=== PATIENT | male | born 1955 | race Caucasian/White ===

== ENCOUNTER → 2016-06-17 | Outpatient (CLI) | payer BC | LOC: MW.CHUR 07:36 | PROVIDERS: ATTEND Urology | DX: R97.20 Elevated prostate specific antigen [PSA] (principal); F52.21 Male erectile disorder | CPT/HCPCS: 36415; 84153 ==

== ENCOUNTER 2019-06-29 09:24 | Day surgery (SDC) | payer BC ==
[~2019-06-29 09:24] MED LIST: Lactated Ringers 1,000 ML IV SCH; Sodium Chloride 0.9% 10 ML SDV IV PRN; Sodium Chloride 0.9% 10 ML Syringe FLUSH PRN; Sodium Chloride 0.9% 2.5 ML Syringe FLUSH PRN
--- NOTE | 2019-06-29 09:59 | PCM.PREANE ---
Preanesthetic Assessment - Anesthesia/Transfusion/Family Hx Anesthesia History: Prior Anesthesia Without Reaction Family History of Anesthesia Reaction: No Transfusion History: No Prior Transfusion(s) Intubation History: Unknown - Review of Systems General: No Symptoms Pulmonary: No Symptoms Cardiovascular: No Symptoms Gastrointestinal: No Symptoms, Other (screening colonoscopy age 63, necer had one) Neurological: No Symptoms Other: Reports: None - Physical Assessment Height: 5 ft 11 in Weight: 119.748 kg ASA Class: 2 Mental Status: Alert & Oriented x3 Airway Class: Mallampati = 2 Dentition: Reports: Normal Dentition, [place](s) (x4 upper front) Thyro-Mental Finger Breadths: 3 Mouth Opening Finger Breadths: 2 (small mouth) ROM/Head Extension: Limited/Partial Lungs: Clear to Auscultation, Normal Respiratory Effort Cardiovascular: Regular Rate, Regular Rhythm - Allergies Allergies/Adverse Reactions: Allergies Allergy/AdvReac Type Severity Reaction Status Date / Time doxycycline Allergy Other Verified 06/29/19 09:42 - Blood Blood Available: No - Anesthesia Plan Pre-Op Medication Ordered: None - Acknowledgements Anesthesia Type Planned: MAC Pt an Appropriate Candidate for the Planned Anesthesia: Yes Alternatives and Risks of Anesthesia Discussed w Pt/Guardian: Yes Pt/Guardian Understands and Agrees with Anesthesia Plan: Yes PreAnesthesia Questionnaire HEENT History: Reports: Other (See Below) Other HEENT History: wears glasses, contacts hx of Iritis (due to allergic rxn to Doxycycline) Cardiovascular History: Reports: Hypertension, Other (See Below) (h/o elevated cholesterol) Genitourinary History: Reports: BPH Musculoskeletal History: Reports: Other (See Below) (occasional back pain) Endocrine/Metabolic History: Reports: None (36.8), Obesity/BMI 30+ - Past Surgical History Head Surgeries/Procedures: Reports: None Male Surgical History: Reports: Vasectomy Musculoskeletal Surgical History: Reports: Other (See Below) Other Musculoskeletal Surgeries/Procedures:: release of frozen shoulder - SUBSTANCE USE Smoking Status *Q: Never Smoker Days Per Week of Alcohol Use: 7 Number of Drinks Per Day: 2 Total Drinks Per Week: 14 Recreational Drug Use History: No - HOME MEDS Home Medications: Home Meds Aspirin [Adult Low Dose Aspirin EC] 81 mg PO DAILY 04/26/19 [History] Fluticasone Propionate [Flonase Allergy Relief] 1 spray NASBOTH ASDIRECTED PRN 04/26/19 [History] L Arginine 1 dose PO DAILY 04/26/19 [History] Losartan Potassium 100 mg PO QAM 04/26/19 [History] Saw/Vit E/Sod Teena/Lyc/Beta/Pyg [Prostate Health Caplet] 1 cap PO DAILY 04/26/19 [History] Sildenafil Citrate 20 mg PO ASDIRECTED PRN 04/26/19 [History] - CURRENT (IN HOUSE) MEDS Current Meds: Current Medications Lactated Ringer's (Ringers, Lactated) 1,000 mls @ 125 mls/hr IV ASDIRECTED JANET Sodium Chloride (Saline Flush) 10 ml FLUSH ASDIRECTED PRN PRN Reason: Keep Vein Open Discontinued Medications Lactated Ringer's (Ringers, Lactated) 1,000 mls @ 125 mls/hr IV ASDIRECTED JANET Sodium Chloride (Saline Flush) 10 ml FLUSH ASDIRECTED PRN PRN Reason: Keep Vein Open Sodium Chloride (Saline Flush) 2.5 ml FLUSH ASDIRECTED PRN PRN Reason: Keep Vein Open Sodium Chloride (Saline Flush) 10 ml FLUSH ASDIRECTED PRN PRN Reason: Keep Vein Open Sodium Chloride (Saline Flush) 2.5 ml FLUSH ASDIRECTED PRN PRN Reason: Keep Vein Open Sodium Chloride (Normal Saline) 10 ml IV ASDIRECTED PRN PRN Reason: IV Use
[2019-06-29] MEDS ORDERED: Propofol 200 MG/20 ML SDV ONE ×2 (10:02→11:24)
[2019-06-29] MEDS ORDERED: Midazolam 1 MG/ML 2 ML SDV ONE (10:02)
[2019-06-29] MEDS ORDERED: Ondansetron 4 MG/2 ML SDV ONE (10:02)
[2019-06-29] MEDS ORDERED: fentaNYL 100 MCG/2 ML SDV ONE (10:02)
--- NOTE | 2019-06-29 12:08 | PCM.OPNOTE ---
- General Post-Op/Procedure Note Date of Surgery/Procedure: 06/29/19 Operative Procedure(s): Diagnostic colonoscopy with polypectomy Findings: 1 ascending colon and 2 hepatic flexure polyps Pre Op Diagnosis: History of colon polyps Post-Op Diagnosis: Ascending colon polyp, hepatic flexure polyps x 2 Anesthesia Technique: MAC Primary Surgeon: Marbella Ryan Condition: Good Free Text/Narrative:: Intake & Output 06/28/19 06/29/19 06/29/19 22:59 06:59 14:59 Intake Total 750 Balance 750
--- NOTE | 2019-06-29 12:26 | PCM.POSTAN ---
POST ANESTHESIA ASSESSMENT - MENTAL STATUS Mental Status: Alert, Oriented - VITAL SIGNS Vital Signs: Last Vital Signs Temp 37.3 C 06/29/19 09:45 Pulse 84 06/29/19 12:05 Resp 11 L 06/29/19 12:05 BP 119/72 06/29/19 12:05 Pulse Ox 95 06/29/19 12:05 - RESPIRATORY Respiratory Status: Respiratory Rate WNL, Airway Patent, O2 Saturation Stable - CARDIOVASCULAR CV Status: Pulse Rate WNL, Blood Pressure Stable - GASTROINTESTINAL GI Status: No Symptoms - PAIN Pain Score: 0 - POST OP HYDRATION Hydration Status: Adequate & Stable - OBSERVATIONS Free Text/Narrative:: No anesthesia problems
--- NOTE | 2019-06-29 12:27 | PCM48HPAN ---
Post Anesthesia Note - EVALUATION WITHIN 48HRS OF ANESTHETIC Vital Signs in Normal Range: Yes Patient Participated in Evaluation: Yes Respiratory Function Stable: Yes Airway Patent: Yes Cardiovascular Function Stable: Yes Hydration Status Stable: Yes Pain Control Satisfactory: Yes Nausea and Vomiting Control Satisfactory: Yes Mental Status Recovered: Yes Vital Signs: Last Vital Signs Temp 37.3 C 06/29/19 09:45 Pulse 84 06/29/19 12:05 Resp 11 L 06/29/19 12:05 BP 119/72 06/29/19 12:05 Pulse Ox 95 06/29/19 12:05 - COMMENTS/OBSERVATIONS Free Text/Narrative:: No anesthesia problems
--- NOTE | 2019-06-29 14:47 | OR ---
SURGEON: MARBELLA RYAN MD DATE OF PROCEDURE: 06/29/2019 PREOPERATIVE DIAGNOSIS: History of colon polyps. POSTOPERATIVE DIAGNOSES: 1. Ascending colon polyp. 2. Hepatic flexure polyps x2. PROCEDURE PERFORMED: Diagnostic colonoscopy with polypectomy. PRIMARY SURGEON: Marbella Ryan MD ANESTHESIA: MAC. INSTRUMENT USED: Olympus colonoscope. EXTENT OF EXAM: To the cecum. PREPARATION: Good. LIMITATIONS: None. INDICATIONS FOR EXAMINATION: The patient is a 63-year-old male who presents for repeat colonoscopy. He has a history of colon polyps. The patient and I discussed the procedure; expected perioperative course; and risks including bleeding, infection, or damage to surrounding structures. The patient verbalized understanding and wishes to proceed. PROCEDURE IN DETAIL: The patient was brought into the endoscopy suite and placed in the left lateral decubitus position on the OR cart. A time-out was completed verifying the patient's name, age, date of , allergies, and procedure to be performed. Monitored anesthesia care was induced. Continuous oxygen was provided via nasal cannula throughout the procedure. After adequate sedation was achieved, a digital rectal exam was performed. The patient was noted to have a hypertrophied hemorrhoid on the right lateral side of the anal canal. A well- lubricated colonoscope was inserted in the rectum and advanced under direct visualization to the level of the cecum. The cecum was identified by both visual and anatomic landmarks. A photograph was taken of the cecal cap as well as with the scope retroflexed within the cecum. The scope was then fully withdrawn while examining the color, texture, anatomy, and integrity of the mucosa from the cecum to the anal canal. The patient was found to have a proximal ascending colon polyp. This was sessile and removed in piecemeal fashion using cold biopsy forceps. At the level of the hepatic flexure were two slightly larger sessile polyps. These were removed in piecemeal fashion using cold biopsy forceps and sent to pathology, labeled as hepatic flexure polyp #1 and hepatic flexure polyp #2. The remainder of the colon appeared normal. The scope was brought into the rectum and retroflexed to allow visualization of the anal canal opening. Again, I noted the hypertrophied papilla of the right lateral hemorrhoid. Photographs of this were taken. The scope was then straightened out and fully withdrawn. The cecum to anus time was 11 minutes. The patient tolerated the procedure well and was transferred to the PACU in stable condition. ENDOSCOPIC DIAGNOSES: 1. Ascending colon polyp. 2. Hepatic flexure polyps x2. RECOMMENDATIONS: Follow up in clinic in 2 weeks. YAYA KEARNEY /[id number]
== END 2019-06-29 12:45 | disposition home or self-care (01) ==
LOC: MW.SDS 09:24
PROVIDERS: ATTEND Surgery
DX: Z12.11 Encounter for screening for malignant neoplasm of colon (principal); D12.2 Benign neoplasm of ascending colon; D12.3 Benign neoplasm of transverse colon; K64.9 Unspecified hemorrhoids; K62.89 Other specified diseases of anus and rectum; E66.9 Obesity, unspecified; I10 Essential (primary) hypertension; Z86.010 Personal history of colon polyps; Z80.0 Family history of malignant neoplasm of digestive organs; Z68.36 Body mass index [BMI] 36.0-36.9, adult; Z88.1 Allergy status to other antibiotic agents; Z79.82 Long term (current) use of aspirin
CPT/HCPCS: 45380; J2250; J2405; J2704; J3010; J7120

== ENCOUNTER 2022-10-15 09:04 | Day surgery (SDC) | payer BC, MEDICARE ==
[2022-10-15] MEDS ORDERED: Propofol 200 MG/20 ML SDV ONE (10:03)
[2022-10-15] MEDS ORDERED: Lidocaine 2% 5 ML SDV ONE (10:03)
[2022-10-15] MEDS ORDERED: Lactated Ringers 1,000 ML IV SCH (10:30)
== END 2022-10-15 11:05 | disposition home or self-care (01) ==
LOC: MW.SDS 09:04
PROVIDERS: ATTEND Surgery
DX: Z12.11 Encounter for screening for malignant neoplasm of colon (principal); D12.2 Benign neoplasm of ascending colon; K64.1 Second degree hemorrhoids; K63.89 Other specified diseases of intestine; E78.5 Hyperlipidemia, unspecified; I10 Essential (primary) hypertension; Z88.1 Allergy status to other antibiotic agents; Z79.82 Long term (current) use of aspirin; Z79.899 Other long term (current) drug therapy; Z90.79 Acquired absence of other genital organ(s)
CPT/HCPCS: 45380; J2704; J7120; 00811; J3490